=== PATIENT | female | born 1960 | race African-American/Black ===

== ENCOUNTER 2019-08-04 21:37 | Emergency (ER) | payer OTHER ==
[~2019-08-04] VITALS: Ht 170.2 cm; Wt 86.4 kg
[~2019-08-04 21:37] MED LIST: LISI-661 PO; METF-910 PO; SIMV-259 PO
[2019-08-04] MEDS ORDERED: KETOROLAC TROMETHAMINE 60 MG/2 ML VIAL IM ONE (23:15)
[2019-08-04] MEDS ORDERED: HYDROCODONE/ACETAMINOPHEN 5-325 MG TABLET PO ONE (23:15)
[2019-08-05] VITALS: BP 135/84
== END 2019-08-05 00:02 | disposition home or self-care (01) ==
LOC: EMS 21:39
DX: K08.89 Other specified disorders of teeth and supporting structures (principal); E11.65 Type 2 diabetes mellitus with hyperglycemia; I10 Essential (primary) hypertension; Z79.84 Long term (current) use of oral hypoglycemic drugs; Z79.899 Other long term (current) drug therapy; Z88.6 Allergy status to analgesic agent; Z88.8 Allergy status to other drugs, medicaments and biological substances
CPT/HCPCS: 82962; 96372; 99283; J1885